=== PATIENT | female | born 1970 | race Caucasian/White ===

== ENCOUNTER 2021-05-11 18:34 | Emergency (ER) | payer SELFPAY ==
[2021-05-11] MEDS ORDERED: Naproxen 250 MG Tab PO STA (19:15)
--- NOTE | 2021-05-11 19:20 | EDM.PDOC ---
ED HPI GENERAL MEDICAL PROBLEM - General Chief Complaint: General Stated Complaint: LOW HEMOGLOBIN Time Seen by Provider: 05/11/21 18:50 Source of Information: Reports: Patient, Provider, RN Notes Reviewed History Limitations: Reports: No Limitations - History of Present Illness INITIAL COMMENTS - FREE TEXT/NARRATIVE: Received a phone call from Castro Mckeon practitioner at the [facility] he evaluated this patient in clinic for fatigue palpitations shortness of breath and initial work-up found to have a hemoglobin at 4.7 she admits she has been having heavy vaginal bleeding for the last several years. She does have an appointment with ADMISSIONS SUPERVISOR tomorrow. He called discussed case with myself I asked if I could set up a transfusion which will be provided. She was in agreement with her plan all the questions were answered she has no complaints at this time - Related Data Allergies Allergy/AdvReac Type Severity Reaction Status Date / Time No Known Allergies Allergy Verified 05/11/21 18:55 Home Meds: Home Meds NK [No Known Home Meds] 05/11/21 [History] Past Medical History Respiratory History: Reports: Asthma Gastrointestinal History: Reports: Bowel Obstruction ADMISSIONS SUPERVISOR History: Reports: Dysfunctional Uterine Bleeding, Other (See Below) Other ADMISSIONS SUPERVISOR History: right fallopian tube removed for "inflammation" Neurological History: Reports: Migraines Psychiatric History: Reports: Addiction, Anxiety, Depression, Psych Hospitalization(s), Suicide Attempt Dermatologic History: Reports: Other (See Below) Other Dermatologic History: ulcerations with MRSA - Infectious Disease History Infectious Disease History: Reports: Chicken Pox, MRSA - Past Surgical History GI Surgical History: Reports: Appendectomy, Cholecystectomy, Other (See Below) Other GI Surgeries/Procedures: exploratory lap Female Surgical History: Reports: Salpingo-Oophorectomy, Tubal Ligation Social & Family History - Tobacco Use Tobacco Use Status *Q: Never Tobacco User Second Hand Smoke Exposure: No - Caffeine Use Caffeine Use: Reports: Coffee, Soda - Recreational Drug Use Recreational Drug Use: Yes Drug Use in Last 12 Months: Yes Recreational Drug Type: Reports: Marijuana/Hashish Recreational Drug Use Frequency: Weekly ED ROS GENERAL - Review of Systems Review Of Systems: See Below Constitutional: Reports: Weakness, Fatigue HEENT: Reports: No Symptoms Respiratory: Reports: Shortness of Breath Cardiovascular: Reports: Dyspnea on Exertion, Palpitations GI/Abdominal: Reports: No Symptoms : Reports: Irregular Menses Musculoskeletal: Reports: No Symptoms ED EXAM, GENERAL - Physical Exam Exam: See Below Exam Limited By: No Limitations General Appearance: Alert, WD/WN, No Apparent Distress Respiratory/Chest: No Respiratory Distress, Lungs Clear, Normal Breath Sounds, No Accessory Muscle Use, Chest Non-Tender Cardiovascular: Regular Rate, Rhythm, No Murmur GI/Abdominal: Soft, Non-Tender Course - Vital Signs Last Recorded V/S: Last Vital Signs Temp 97.1 F 05/12/21 01:00 Pulse 72 05/12/21 01:21 Resp 15 05/12/21 01:21 BP 129/76 05/12/21 01:21 Pulse Ox 98 05/12/21 01:21 - Orders/Labs/Meds Orders: Active Orders 24 hr Category Date Time Status PATIENT RETYPE [BBK] Stat Lab 05/11/21 19:30 Results RED BLOOD CELLS LP [BBK] Stat Lab 05/11/21 19:30 Results TYPE AND SCREEN [BBK] Stat Lab 05/11/21 19:30 Results Transfuse Red Blood Cells [COMM] Stat Oth 05/11/21 19:13 Ordered Labs: Laboratory Tests 05/11/21 05/12/21 Range/Units 19:30 02:04 Hgb 6.1 L* (12.0-15.0) g/dL Blood Type O POSITIVE Gel Antibody Screen Negative Crossmatch See Detail Meds: Medications Discontinued Medications Generic Name Dose Route Start Last Admin Trade Name Pema PRN Reason Stop Dose Admin Naproxen 500 mg 05/11/21 19:15 05/11/21 20:41 Naproxen 250 Mg Tab PO 05/11/21 19:16 500 mg NOW STA Administration Departure - Departure Time of Disposition: 02:11 Disposition: Home, Self-Care 01 Condition: Fair Clinical Impression: Severe anemia - Discharge Information Instructions: Anemia Referrals: PCP,None [Primary Care Provider] - Forms: ED Department Discharge Additional Instructions: Could try naproxen 500 mg twice a day to help with vaginal bleeding, please keep your appointment with ADMISSIONS SUPERVISOR this morning call return to the emergency department worsening of symptoms Sepsis Event Note (ED) - Evaluation Sepsis Screening Result: No Definite Risk - Focused Exam Vital Signs: Vital Signs Temp Temp Pulse Resp BP Pulse Ox 05/12/21 01:21 72 15 129/76 98 05/12/21 01:00 97.1 F 75 14 116/73 97 05/12/21 00:30 97.1 F 83 14 112/69 97 05/12/21 00:00 97.1 F 82 15 111/67 98 05/11/21 23:45 97.0 F 89 14 120/2 L 98 05/11/21 23:31 97.3 F 72 15 127/74 98 05/11/21 23:15 97.2 F 97 12 121/74 98 05/11/21 23:00 98.0 F 83 18 128/74 99 05/11/21 22:45 97.3 F 88 12 117/73 99 05/11/21 22:43 97.3 F 79 14 99 05/11/21 22:37 79 17 125/66 97 05/11/21 22:22 86 15 120/68 95 05/11/21 22:12 96.9 F 85 16 119/69 97 05/11/21 22:07 88 21 H 119/69 97 05/11/21 21:52 88 19 114/63 97 05/11/21 21:43 97.5 F 90 18 113/67 98 05/11/21 21:37 88 16 113/67 97 05/11/21 21:25 97.0 F 85 16 109/64 98 05/11/21 21:22 89 15 109/64 100 05/11/21 21:09 96.3 F L 89 18 109/66 98 05/11/21 21:07 89 15 109/66 98 05/11/21 20:54 96.9 F 86 16 110/63 98 05/11/21 20:52 83 15 110/63 98 05/11/21 20:40 98.0 F 95 12 114/67 05/11/21 20:37 92 18 114/67 98 05/11/21 20:18 86 17 120/69 98 05/11/21 19:48 90 121/77 05/11/21 19:14 85 111/66 05/11/21 18:56 98.1 F 90 11 L 130/68 100 05/11/21 18:49 98.1 F 90 11 L 130/68 100 - My Orders Last 24 Hours: My Active Orders 05/11/21 19:13 Transfuse Red Blood Cells [COMM] Stat 05/11/21 19:30 PATIENT RETYPE [BBK] Stat RED BLOOD CELLS LP [BBK] Stat TYPE AND SCREEN [BBK] Stat - Assessment/Plan Last 24 Hours: My Active Orders 05/11/21 19:13 Transfuse Red Blood Cells [COMM] Stat 05/11/21 19:30 PATIENT RETYPE [BBK] Stat RED BLOOD CELLS LP [BBK] Stat TYPE AND SCREEN [BBK] Stat Plan: Assessment Acuity = acute Site and laterality = severe anemia Etiology = chronic vaginal bleeding Manifestations = fatigue, dyspnea Location of injury = Home Lab values = hemoglobin 6.1 Plan Good response with 2 units packed red blood cells some improvement in her symptoms she has an appointment with ADMISSIONS SUPERVISOR this morning for further treatment and evaluation This note was dictated using [employer] voice recognition software please call with any questions on syntax or grammar.
== END 2021-05-12 02:29 | disposition home or self-care (01) ==
LOC: JP.ED 18:34
DX: D64.9 Anemia, unspecified (principal)
CPT/HCPCS: 36415; 36430; 85018; 86850; 86900; 86901; 86920; 86922; 99284; A9270; P9016

== ENCOUNTER 2021-08-07 20:14 | Emergency (ER) | payer MEDICAID, OTHER ==
--- NOTE | 2021-08-07 20:43 | EDM.PDOC ---
ED HPI GENERAL MEDICAL PROBLEM - General Chief Complaint: Fever Stated Complaint: HEADACHE, FEVER - POST HYSTERECTOMY 07/27 Time Seen by Provider: 08/07/21 20:24 Source of Information: Reports: Patient, Old Records History Limitations: Reports: No Limitations - History of Present Illness INITIAL COMMENTS - FREE TEXT/NARRATIVE: Felipe 8 is a 51-year-old female presenting to the ED for evaluation of repetitive fevers and generally not feeling well after undergoing a laparoscopic hysterectomy done on 07/27/2021 at [facility]– [place] for dysfunctional uterine bleeding resulting in chronic blood loss anemia. 08/02/2021 the patient has been having intermittent fevers as high as 98.9 F but has not really had any focal signs for infection including her incision sites which are clean, dry, and intact, no sore throat, cough, shortness of breath, nausea, vomiting, diarrhea, dysuria, urgency or frequency, back pain or abdominal pain. The patient does complain of a headache which is what prompted her to come in today. The patient is vaccinated for COVID-19 receiving her 2 doses in March and April 2021. She has not had a booster because it is too soon. She is vaccinated for influenza as well. - Related Data Allergies Allergy/AdvReac Type Severity Reaction Status Date / Time No Known Allergies Allergy Verified 08/07/21 20:23 Home Meds: Home Meds NK [No Known Home Meds] 05/11/21 [History] Past Medical History Respiratory History: Reports: Asthma Gastrointestinal History: Reports: Bowel Obstruction DIRECTOR OF SOFTWARE DEVELOPMENT History: Reports: Dysfunctional Uterine Bleeding, Other (See Below) Other DIRECTOR OF SOFTWARE DEVELOPMENT History: right fallopian tube removed for "inflammation" Neurological History: Reports: Migraines Psychiatric History: Reports: Addiction, Anxiety, Depression, Psych Hospitalization(s), Suicide Attempt Dermatologic History: Reports: Other (See Below) Other Dermatologic History: ulcerations with MRSA - Infectious Disease History Infectious Disease History: Reports: Chicken Pox, MRSA - Past Surgical History GI Surgical History: Reports: Appendectomy, Cholecystectomy, Other (See Below) Other GI Surgeries/Procedures: exploratory lap Female Surgical History: Reports: Salpingo-Oophorectomy, Tubal Ligation Social & Family History - Caffeine Use Caffeine Use: Reports: Coffee, Soda ED ROS GENERAL - Review of Systems Review Of Systems: See Below Constitutional: Reports: Fever, Chills HEENT: Reports: No Symptoms Respiratory: Reports: No Symptoms Cardiovascular: Reports: No Symptoms Endocrine: Reports: No Symptoms GI/Abdominal: Reports: No Symptoms : Reports: No Symptoms Musculoskeletal: Reports: No Symptoms Skin: Reports: No Symptoms Neurological: Reports: Headache Psychiatric: Reports: No Symptoms Hematologic/Lymphatic: Reports: No Symptoms Immunologic: Reports: No Symptoms ED EXAM, GENERAL - Physical Exam Exam: See Below Exam Limited By: No Limitations General Appearance: Alert, No Apparent Distress Eye Exam: Bilateral Eye: EOMI, PERRL Nose: Normal Inspection, Normal Mucosa Throat/Mouth: Normal Inspection, Normal Oropharynx, Normal Voice, No Airway Compromise Head: Atraumatic Neck: Normal Inspection, Supple, Non-Tender. No: Lymphadenopathy (R), Lymphadenopathy (L) Respiratory/Chest: No Respiratory Distress, Lungs Clear, Normal Breath Sounds, No Accessory Muscle Use. No: Rales, Rhonchi, Wheezing Cardiovascular: Normal Peripheral Pulses, Regular Rate, Rhythm, No Murmur Peripheral Pulses: 2+: Radial (L), Radial (R), Posterior Tibial (L), Posterior Tibial (R) GI/Abdominal: Normal Bowel Sounds, Soft, Non-Tender, No Distention Back Exam: Normal Inspection Extremities: Normal Inspection Neurological: Alert, Oriented, Normal Cognition, No Motor/Sensory Deficits Psychiatric: Normal Affect, Normal Mood Skin Exam: Warm, Dry Course - Vital Signs Last Recorded V/S: Last Vital Signs Temp 36.7 C 08/07/21 20:29 Pulse 104 H 08/07/21 20:29 Resp 18 08/07/21 20:29 BP 111/71 08/07/21 20:29 Pulse Ox 97 08/07/21 20:29 - Orders/Labs/Meds Orders: Active Orders 24 hr Category Date Time Status Chest 2V [CR] Stat Exams 08/07/21 20:45 Taken Isolation [COMM] Stat Oth 08/07/21 20:46 Ordered Labs: Laboratory Tests 08/07/21 08/07/21 08/07/21 Range/Units 20:34 21:06 21:06 WBC 10.9 (4.5-11.0) K/uL RBC 5.28 (3.30-5.50) M/uL Hgb 13.8 D (12.0-15.0) g/dL Hct 41.3 (36.0-48.0) % MCV 78 L (80-98) fL MCH 26 L (27-31) pg MCHC 33 (32-36) % Plt Count 289 (150-400) K/uL Neut % (Auto) 54.5 (36-66) % Lymph % (Auto) 32.1 (24-44) % Orange % (Auto) 8.0 H (2-6) % Eos % (Auto) 1.8 L (2-4) % Baso % (Auto) 3.6 H (0-1) % Sodium 135 L (140-148) mmol/L Potassium 3.3 L (3.6-5.2) mmol/L Chloride 99 L (100-108) mmol/L Carbon Dioxide 27 (21-32) mmol/L Anion Gap 12.3 (5.0-14.0) mmol/L BUN 11 (7-18) mg/dL Creatinine 0.6 (0.6-1.0) mg/dL Est Cr Clr Drug Dosing 96.86 mL/min Estimated GFR (MDRD) > 60 (>60) Glucose 123 H (74-106) mg/dL Lactic Acid (0.4-2.0) mmol/L Calcium 8.2 L (8.5-10.1) mg/dL Total Bilirubin 0.6 (0.2-1.0) mg/dL AST 69 H (15-37) U/L ALT 191 H (12-78) U/L Alkaline Phosphatase 298 H (46-116) U/L Total Protein 6.5 (6.4-8.2) g/dL Albumin 3.1 L (3.4-5.0) g/dL Globulin 3.4 (2.3-3.5) g/dL Albumin/Globulin Ratio 0.9 L (1.2-2.2) Urine Color Yellow (YELLOW) Urine Appearance Slightly cloudy A (CLEAR) Urine pH 5.5 (5.0-8.0) Ur Specific [place] >= 1.030 (1.008-1.030) Urine Protein Trace H (NEGATIVE) mg/dL Urine Glucose (UA) Negative (NEGATIVE) mg/dL Urine Ketones Negative (NEGATIVE) mg/dL Urine Occult Blood Trace-intact H (NEGATIVE) Urine Nitrite Negative (NEGATIVE) Urine Bilirubin Small H (NEGATIVE) Urine Urobilinogen 1.0 (0.2-1.0) EU/dL Ur Leukocyte Esterase Negative (NEGATIVE) Urine RBC 0-5 (0-5) Urine WBC 0-5 (0-5) Ur Epithelial Cells Moderate Amorphous Sediment Not seen Urine Bacteria Moderate Urine Mucus Many SARS CoV-2 RNA Rapid OLGA LIDIA 08/07/21 08/07/21 Range/Units 21:06 21:41 WBC (4.5-11.0) K/uL RBC (3.30-5.50) M/uL Hgb (12.0-15.0) g/dL Hct (36.0-48.0) % MCV (80-98) fL MCH (27-31) pg MCHC (32-36) % Plt Count (150-400) K/uL Neut % (Auto) (36-66) % Lymph % (Auto) (24-44) % Orange % (Auto) (2-6) % Eos % (Auto) (2-4) % Baso % (Auto) (0-1) % Sodium (140-148) mmol/L Potassium (3.6-5.2) mmol/L Chloride (100-108) mmol/L Carbon Dioxide (21-32) mmol/L Anion Gap (5.0-14.0) mmol/L BUN (7-18) mg/dL Creatinine (0.6-1.0) mg/dL Est Cr Clr Drug Dosing mL/min Estimated GFR (MDRD) (>60) Glucose (74-106) mg/dL Lactic Acid 1.3 (0.4-2.0) mmol/L Calcium (8.5-10.1) mg/dL Total Bilirubin (0.2-1.0) mg/dL AST (15-37) U/L ALT (12-78) U/L Alkaline Phosphatase (46-116) U/L Total Protein (6.4-8.2) g/dL Albumin (3.4-5.0) g/dL Globulin (2.3-3.5) g/dL Albumin/Globulin Ratio (1.2-2.2) Urine Color (YELLOW) Urine Appearance (CLEAR) Urine pH (5.0-8.0) Ur Specific [place] (1.008-1.030) Urine Protein (NEGATIVE) mg/dL Urine Glucose (UA) (NEGATIVE) mg/dL Urine Ketones (NEGATIVE) mg/dL Urine Occult Blood (NEGATIVE) Urine Nitrite (NEGATIVE) Urine Bilirubin (NEGATIVE) Urine Urobilinogen (0.2-1.0) EU/dL Ur Leukocyte Esterase (NEGATIVE) Urine RBC (0-5) Urine WBC (0-5) Ur Epithelial Cells Amorphous Sediment Urine Bacteria Urine Mucus SARS CoV-2 RNA Rapid OLGA LIDIA Negative - Re-Assessments/Exams Free Text/Narrative Re-Assessment/Exam: 08/07/21 22:08 patient's labs showing a normal leukocyte count at 10.9, hemoglobin of 13.8, and platelet count of 218,000. The comprehensive metabolic panel is normal with a sodium of 135, potassium 3.3, chloride of 99, bicarbonate of 27, BUN of 11 with a creatinine of 0.6 and a glucose of 123. The calcium was slightly low at 8.2, however, there is significant elevation of the AST at 69, ALT at 191, and alkaline phosphatase of 298. The patient has been taking Tylenol which may account for the elevated transaminases. I do recommend that she follow-up with her primary provider for recheck of the transaminases next week. Covid is negative. Urinalysis is also unremarkable. I do not find anything worrisome in her work-up including chest x-ray to suggest a source for her fever, however, atelectasis may be playing a role here. I did recommend she use her incentive spirometry which should help with this. She may continue with ibuprofen for her fever control, but given her elevated transaminases I would probably recommend against Tylenol at this time. Indications return to the ED were discussed and she was discharged in satisfactory condition. Departure - Departure Time of Disposition: 22:10 Disposition: Home, Self-Care 01 Clinical Impression: Postoperative fever Headache Qualifiers: Headache type: unspecified Headache chronicity pattern: acute headache Intractability: not intractable Qualified Code(s): R51.9 - Headache, unspecified - Discharge Information Instructions: General Headache Without Cause, Fever, Adult, [id number] Referrals: Amara Hinson MD [Primary Care Provider] - Forms: ED Department Discharge Care Plan Goals: Your work-up did not show any specific cause for your fever with a normal white count and your hemoglobin being up to 13.8 at this time. Your urine and chest x-ray were unremarkable. You do have elevation of your liver enzymes as we spoke about and I would recommend going to your primary doctor next week and ge tting them rechecked. Your AST was 69, ALT of 191 and alkaline phosphatase of 298. I would recommend incentive spirometry as atelectasis is common to cause a fever after surgery especially abdominal surgery. Certainly if anything worsens please return and we will reevaluate again. Have a Merry Jayro and hopefully recover fully without any other incident. Sepsis Event Note (ED) - Focused Exam Vital Signs: Vital Signs Temp Pulse Resp BP Pulse Ox 08/07/21 20:29 36.7 C 104 H 18 111/71 97 - Problem List & Annotations (1) Headache SNOMED Code(s): 26841644 Code(s): R51.9 - HEADACHE, UNSPECIFIED Status: Acute Priority: Medium Current Visit: Yes Qualifiers: Headache type: unspecified Headache chronicity pattern: acute headache Intractability: not intractable Qualified Code(s): R51.9 - Headache, unspecified (2) Postoperative fever SNOMED Code(s): 633561919 Code(s): R50.82 - POSTPROCEDURAL FEVER Status: Acute Priority: Medium Current Visit: Yes - Problem List Review Problem List Initiated/Reviewed/Updated: Yes - My Orders Last 24 Hours: My Active Orders 08/07/21 20:45 Chest 2V [CR] Stat 08/07/21 20:46 Isolation [COMM] Stat - Assessment/Plan Last 24 Hours: My Active Orders 08/07/21 20:45 Chest 2V [CR] Stat 08/07/21 20:46 Isolation [COMM] Stat
--- NOTE | 2021-08-10 09:35 | CR ---
CHEST: 2 view CLINICAL HISTORY:Fever COMPARISON:None FINDINGS: The heart size, pulmonary vascularity and hilar structures are normal. No infiltrate effusion or pneumothorax is seen. IMPRESSION: No acute cardiopulmonary process.
== END 2021-08-07 22:28 | disposition home or self-care (01) ==
LOC: JP.ED 20:14
DX: R51.9 Headache, unspecified (principal); R50.82 Postprocedural fever; Z20.822 Contact with and (suspected) exposure to COVID-19
CPT/HCPCS: 36415; 71046; 71046-26; 80053; 81001; 83605; 85025; 99284-25; U0002

== ENCOUNTER 2022-09-02 07:36 | Day surgery (SDC) | payer MEDICAID ==
[2022-09-02] MEDS ORDERED: Sodium Chloride 0.9% 1,000 ML IV SCH (08:00)
[2022-09-02] MEDS ORDERED: Propofol 200 MG/20 ML SDV ONE (08:18)
[2022-09-02] MEDS ORDERED: fentaNYL 50 MCG/ML SDV ONE (08:19)
== END 2022-09-02 10:32 | disposition home or self-care (01) ==
LOC: JP.SDS 07:36
PROVIDERS: ATTEND Surgery
DX: Z12.11 Encounter for screening for malignant neoplasm of colon (principal); Z79.899 Other long term (current) drug therapy
CPT/HCPCS: 45378; J2704; J3010; J7030